=== PATIENT | female | born 1970 | race Caucasian/White ===

== ENCOUNTER 2020-10-02 16:47 | Inpatient (IN) | payer SELFPAY ==
[~2020-10-02] VITALS: Ht 165.1 cm; Wt 78.0 kg
[2020-10-02] MEDS ORDERED: ACETAMINOPHEN 325MG TABLET PO STA (17:17)
[2020-10-02 17:36] LABS: BASOPHILS % 0.7 % (0.0-2.0); EOSINOPHILS % 3.4 % (0.0-5.0); HEMATOCRIT. 40.9 % (36.0-48.0); HEMOGLOBIN. 14.3 g/dL (12.0-16.0); LYMPHOCYTES % 26.4 % (20.0-50.0); MEAN CORPUSCULAR HEMOGLOBIN 31.6 pg (28.0-32.0); MEAN CORPUSCULAR VOLUME 90.4 fL (81.0-99.0); MEAN PLATELET VOLUME 10.1 fl (7.4-10.4); MONOCYTES % 8.7 % (2.0-8.0); NEUTROPHILS % 60.8 % (40.0-76.0); PLATELET 221 x1000/uL (130-400); RED BLOOD CELL COUNT 4.52 mill/uL (4.2-5.4); RED CELL DISTRIBUTION WIDTH 13.3 % (11.6-14.6)
[2020-10-02 17:44] LABS: CHLORIDE 110 mEq/L (98-107)
[2020-10-02] MEDS ORDERED: POTASSIUM CHLORIDE 20MEQ TABLET SR PO ONE (18:15)
[2020-10-02] MEDS ORDERED: ONDANSETRON HCL 4MG/2ML INJ IV PRN (20:15)
[2020-10-02] MEDS ORDERED: ACETAMINOPHEN 325MG TABLET PO PRN (20:15)
[2020-10-02] MEDS ORDERED: CLONIDINE 0.1MG TABLET PO PRN (20:15)
[2020-10-02] MEDS ORDERED: MAGNESIUM/ALUMINUM HYDROXIDE/SIMETHICONE 30ML UDC PO PRN (20:15)
[2020-10-02] MEDS ORDERED: GUAIFENESIN 200MG/10ML SUGAR FREE UDC PO PRN (20:15)
[2020-10-02] MEDS ORDERED: DOCUSATE SODIUM 100MG CAPSULE PO PRN (20:15)
[2020-10-02] MEDS ORDERED: ENOXAPARIN 40MG/0.4ML SYR SUBCUT SCH (21:00)
[2020-10-02 22:28] LABS: CREATINE KINASE 100 IU/L (26-192)
[2020-10-02 22:29] LABS: CREATINE KINASE MB FRACTION 1.1 ng/mL (0.5-3.6)
[2020-10-03 06:17] LABS: BASOPHILS % 0.9 % (0.0-2.0); EOSINOPHILS % 4.7 % (0.0-5.0); HEMATOCRIT. 39.8 % (36.0-48.0); HEMOGLOBIN. 13.3 g/dL (12.0-16.0); LYMPHOCYTES % 25.7 % (20.0-50.0); MEAN CORPUSCULAR HEMOGLOBIN 30.9 pg (28.0-32.0); MEAN CORPUSCULAR VOLUME 92.2 fL (81.0-99.0); MEAN PLATELET VOLUME 10.1 fl (7.4-10.4); MONOCYTES % 9.6 % (2.0-8.0); NEUTROPHILS % 59.1 % (40.0-76.0); PLATELET 216 x1000/uL (130-400); RED BLOOD CELL COUNT 4.31 mill/uL (4.2-5.4); RED CELL DISTRIBUTION WIDTH 13.6 % (11.6-14.6)
[2020-10-03 06:25] LABS: CHLORIDE 112 mEq/L (98-107)
[2020-10-03 06:32] LABS: LDL CHOLESTEROL 91 mg/dL (5-100)
[2020-10-03 06:33] LABS: CREATINE KINASE 107 IU/L (26-192); HDL CHOLESTEROL 50 mg/dL (40-59)
[2020-10-03 06:36] LABS: CREATINE KINASE MB FRACTION < 1.0 ng/mL (0.5-3.6)
[2020-10-03] MEDS ORDERED: ASPIRIN 81MG EC TABLET PO SCH (09:00)
[2020-10-03 11:30] VITALS: BP 119/74
[2020-10-03 15:10] VITALS: BP 119/74
[2020-10-03 16:12] VITALS: BP 124/70
== END 2020-10-03 16:15 | disposition home or self-care (01) | DRG 203 ==
LOC: ER 16:47 → 8WST 18:50 → ENRESERV 10-03 09:45
PROVIDERS: ADMIT Hospitalist; ATTEND Hospitalist
DX: R07.89 Other chest pain (principal); E78.5 Hyperlipidemia, unspecified; E87.6 Hypokalemia; I10 Essential (primary) hypertension; R06.02 Shortness of breath
CPT/HCPCS: 36415; 71045; 80053; 80061; 82550; 82553; 83880; 84484; 85025; 93306; 93970; 99285; J1650

== ENCOUNTER 2021-01-07 17:33 | Emergency (ER) | payer MEDICAID, OTHER ==
[~2021-01-07] VITALS: Ht 157.5 cm; Wt 86.0 kg
[2021-01-07] MEDS ORDERED: PENICILLIN V POTASSIUM 250MG TABLET PO STA (19:45)
[2021-01-07] MEDS ORDERED: PENI500T MT (19:46)
[2021-01-07 20:33] VITALS: BP 132/71
== END 2021-01-07 20:34 | disposition home or self-care (01) ==
LOC: ER 17:45
DX: K05.00 Acute gingivitis, plaque induced (principal); I10 Essential (primary) hypertension; K21.9 Gastro-esophageal reflux disease without esophagitis; G80.9 Cerebral palsy, unspecified; M19.90 Unspecified osteoarthritis, unspecified site
CPT/HCPCS: 99283